=== PATIENT | male | born 1995 | race Caucasian/White ===

== ENCOUNTER 2016-07-04 19:40 | Emergency (ER) | payer OTHER, MEDICAID ==
[2016-07-04 20:56] LABS: HEMOGLOBIN 17.5 gm/dl (14.0-17.5); RED BLOOD COUNT 5.78 M/UL (4.20-5.50); WHITE BLOOD COUNT 25.6 K/UL (4.5-11.0)
[2016-07-04 21:24] LABS: BUN/CREATININE RATIO 8 (0-10)
== END 2016-07-05 03:05 | disposition short-term general hospital (02) ==
LOC: ER1 19:40
PROVIDERS: Emergency Medicine
DX: T79.6XXA Traumatic ischemia of muscle, initial encounter (principal); R00.0 Tachycardia, unspecified; D72.829 Elevated white blood cell count, unspecified; S40.211A Abrasion of right shoulder, initial encounter; S30.810A Abrasion of lower back and pelvis, initial encounter; V29.9XXA Motorcycle rider (driver) (passenger) injured in unspecified traffic accident, initial encounter; Y92.410 Unspecified street and highway as the place of occurrence of the external cause
CPT/HCPCS: 36415; 70450; 71250; 72125; 72131; 73030; 73080; 73110; 80053; 80307; 81001; 82550; 82553; 82962; 83690; 83874; 84484; 85025; 85610; 85730; 86850; 86900; 86901; 87086; 90714; 96361; 96374; 96375; 96376; 99285; G0480; J2270; J2405